=== PATIENT | female | born 1980 | race Caucasian/White ===

== ENCOUNTER 2022-07-10 13:49 | Outpatient (CLI) | payer OTHER, SELFPAY ==
--- NOTE | ~2022-07-10 | MM_ITS ---
EXAMINATION: MM screening yanelis BI w leni HISTORY: Screening TECHNIQUE: Craniocaudal and mediolateral oblique 3-D tomosynthesis images were obtained and synthetic 2-D images were generated. CAD analysis was submitted and interpreted. COMPARISON: No prior mammogram is available for comparison at this institution. BREAST PARENCHYMAL COMPOSITION: The breasts are heterogeneously dense, which may obscure small masses . FINDINGS: There is no evidence of suspicious mass, calcification, or architectural distortion to sugg est malignancy in either breast. There has been no suspicious interval change. IMPRESSION: 1. No mammographic evidence of malignancy. 2. Recommend routine screening mammography in one year. BI-RADS Category 1: Negative Reviewed, dictated and finalized at location A.
== END 2022-07-10 13:50 | disposition home or self-care (01) ==
LOC: ANHIMG 13:54
DX: Z12.31 Encounter for screening mammogram for malignant neoplasm of breast (principal)
CPT/HCPCS: 77063; 77067

== ENCOUNTER 2023-08-20 18:22 | Emergency (ER) | payer OTHER, SELFPAY ==
--- NOTE | ~2023-08-20 | XR_ITS ---
EXAM: XR elbow RT min 3V DATE: 08/20/2023 18:47 HISTORY: FALL, PAIN TO RT ELBOW . COMPARISON: None available. FINDINGS: Normal mineralization. Comminuted impacted fracture of the right radial head, with 2 mm co rtical step-off. No lytic or blastic lesion. Joint spaces are maintained. No erosion or periosteal ch benjamin. Elbow joint effusion. IMPRESSION: Comminuted, impacted right radial head fracture, with 2 mm cortical depression. Moderate right elbow joint effusion. Reviewed, dictated and finalized at location K.
--- NOTE | ~2023-08-20 | XR_ITS ---
EXAM: XR shoulder RT min 2V DATE: 08/20/2023 18:57 HISTORY: FELL, PAIN TO RT SHOULDER . COMPARISON: None available. FINDINGS: Normal mineralization. No fracture or dislocation. No lytic or blastic lesion. Joint space s are maintained. No erosion or periosteal change. Soft tissues within normal limits. IMPRESSION: No acute osseous finding in the right shoulder. Reviewed, dictated and finalized at location K.
--- NOTE | 2023-08-20 18:25 | ED.UPPEXIN ---
HPI - Extremity Injury (Upper) General Chief Complaint: Extremity Injury, Upper Stated Complaint: fall rt arm injury Time Seen by Provider: 08/20/23 18:25 Source: patient Mode of arrival: ambulatory Limitations: no limitations History of Present Illness HPI narrative: Pat is a 43-year-old female patient presenting to the clinic today with complaints of a right arm injury that occurred yesterday. She reports she was standing up on roller skates and fell backwards and hyperextended her right elbow. Is having pain to the mid humerus to the mid forearm. Notable swelling to the posterior elbow when compared to the left elbow Related Data Home Medications Medication Instructions Recorded Confirmed levonorgestrel 21 mcg/24 hours (8 See Rx Instructions .Route .COMPLEX 08/20/23 08/20/23 yrs) 52 mg intrauterine device (Mirena) Allergies Allergy/AdvReac Type Severity Reaction Status Date / Time azithromycin AdvReac Intermediate Abdominal Verified 08/20/23 18:40 Pain Review of Systems Review of Systems: Pertinent positives per HPI. Patient denies any fever, chills, rash, headache, visual changes, dizziness, cough, runny nose, sore throat, shortness of breath, chest pain, palpitations, nausea, vomiting, diarrhea, constipation, abdominal pain, or any urinary issues. PMFSH Comments At the time of my signature, I reviewed and agree with the nursing past medical, surgical, social, and family history. There is no relevant family history pertinent to the patient complaint. Exam Narrative: General: Well-developed, well nourished, in no apparent distress Head: Normocephalic, atraumatic. Cardio: Regular rate and rhythm, s1 and s2 normal, no murmur appreciated. Resp: Clear to auscultation bilaterally, no rhonchi, rales, wheezing or rubs. Musculoskeletal: No deformity, swelling and tenderness to the posterior elbow, pain to the anterior elbow with supination/pronation, tender to palpation over the mid humerus and the mid forearm, limited range of motion due to pain, peripheral pulse strong, no edema, no cyanosis, normal gait and station Course Course Emergency Course: Portions of this record may have been created with voice recognition software. Level of Care: Express Care Visit Vital Signs Vital signs: Vital signs reviewed MDM - Extremity Injury (Upper) MDM Narrative Medical decision making narrative: At the time of visit patient is resting on the exam table. Patient right radial pulses strong and intact and she has good movement of her fingers and wrist, x-ray of the right elbow was performed and shows a closed comminuted right radial head impacted fracture with a 2 mm cortical depression, x-ray of the right shoulder is negative for any fracture or malalignment. Will place the patient in a posterior long-arm OCL and give her arm sling. [place] prescription was sent to the pharmacy. Narcan was also sent to the pharmacy. Supportive measures were discussed with the patient she voiced understanding of discharge instructions. Discussed Ortho follow-up and Dr. Álvarez information was given to the patient. Work note was given for limitations Differential Diagnosis Differential diagnosis: Likely sprain and strain of wrist, dislocation of shoulder, fracture of humerus and other (Radius fracture, ulnar fracture, humerus fracture) Imaging Data Radiologist's impression: ITS Impressions Elbow X-Ray 08/20/23 18:55 IMPRESSION: Comminuted, impacted right radial head fracture, with 2 mm cortical depression. Moderate right elbow joint effusion. Shoulder X-Ray 08/20/23 18:58 IMPRESSION: No acute osseous finding in the right shoulder. Discharge Plan Discharge Clinical Impression: Effusion of elbow joint, right Closed fracture of radial head Qualifiers: Encounter type: initial encounter Fracture alignment: nondisplaced Laterality: right Qualified Code(s): S52.124A - Nondisplaced frac
[2023-08-20 18:32] VITALS: BP 135/70; PULSE 79; RESP 16; TEMP 36.4; O2SAT 100
== END 2023-08-20 19:30 | disposition home or self-care (01) ==
PROVIDERS: Emergency Provider Nurse Practitioner Family
DX: S52.124A Nondisplaced fracture of head of right radius, initial encounter for closed fracture (principal); M25.421 Effusion, right elbow; W18.39XA Other fall on same level, initial encounter; Y93.51 Activity, roller skating (inline) and skateboarding
CPT/HCPCS: 29105; 73030; 73080; 99214; A4565; G0463

== ENCOUNTER 2023-11-10 09:59 | Emergency (ER) | payer OTHER, SELFPAY ==
--- NOTE | ~2023-11-10 | XR_ITS ---
XR chest 2V DATE: 11/10/2023 11:17 INDICATION: Cough, shortness of breath TECHNIQUE: 2 views COMPARISON: None FINDINGS: Normal heart size. No hilar or mediastinal enlargement. No pulmonary infiltrate or consolid ation, pleural effusion or pulmonary vascular congestion or pneumothorax. IMPRESSION: Negative Reviewed, dictated and finalized at location A. [employer]ANCE ENGINEER IMPRESSION: Negative
[2023-11-10 10:39] VITALS: BP 133/80; PULSE 89; RESP 18; TEMP 36.3; O2SAT 100
--- NOTE | 2023-11-10 11:00 | ED.URI ---
HPI - URI/Sore Throat General Chief Complaint: Upper Respiratory Infection Stated Complaint: congestion Time Seen by Provider: 11/10/23 10:45 Source: patient Mode of arrival: ambulatory Limitations: no limitations History of Present Illness HPI Narrative: Pat is a 43-year-old female patient presenting to clinic today with complaints of cough congestion. She reports that she finished up some prednisone and Augmentin for possible pneumonia. Reports that the cough and congestion has been going on for a couple weeks. Also reports some shortness of breath. Denies any fever chills. Cough is productive with green and yellow phlegm. More short of breath upon exertion. MD elicited complaint: sore throat and nasal congestion Related Data Home Medications Medication Instructions Recorded Confirmed levonorgestrel 21 mcg/24 hours (8 See Rx Instructions .Route .COMPLEX 08/20/23 08/20/23 yrs) 52 mg intrauterine device (Mirena) Allergies Allergy/AdvReac Type Severity Reaction Status Date / Time azithromycin AdvReac Intermediate Abdominal Verified 08/20/23 18:40 Pain Review of Systems Review of Systems: Pertinent positives per HPI. Patient denies any fever, chills, rash, headache, visual changes, dizziness, chest pain, palpitations, nausea, vomiting, diarrhea, constipation, abdominal pain, or any urinary issues. PMFSH Comments At the time of my signature, I reviewed and agree with the nursing past medical, surgical, social, and family history. There is no relevant family history pertinent to the patient complaint. Exam Narrative: General: Well-developed, well nourished, in no apparent distress Head: Normocephalic, atraumatic Eyes: Pupils equally round and reactive to light bilaterally, EOM intact, sclera and conjunctive clear, no discharge, lids normal Ears: TMs intact and clear, ear canals clear, no drainage, grossly hearing normal. Nose: Nares patent, clear nasal discharge, no inflammation, no sinus tenderness. Mouth: Oral pharynx without lesions or masses, good dentition, MMM. Neck: Supple, trachea midline, no enlargement of anterior or posterior cervical nodes, no thyroid masses or goiter palpable. Cardio: Regular rate and rhythm, s1 and s2 normal, no murmur appreciated. Resp: Expiratory wheezing and inspiratory rhonchi, no rales or rubs Course Course Emergency Course: Portions of this record may have been created with voice recognition software. Level of Care: Express Care Visit Vital Signs Vital signs: Vital Signs Temperature 36.3 C L 11/10/23 10:39 Pulse Rate 89 11/10/23 10:39 Respiratory Rate 18 11/10/23 10:39 Blood Pressure 133/80 11/10/23 10:39 Pulse Oximetry 100 11/10/23 10:39 Oxygen Delivery Room Air 11/10/23 10:39 Temperature 36.3 C L 11/10/23 10:39 Pulse Rate 89 11/10/23 10:39 Respiratory Rate 18 11/10/23 10:39 Blood Pressure 133/80 11/10/23 10:39 Pulse Oximetry 100 11/10/23 10:39 Oxygen Delivery Room Air 11/10/23 10:39 Vital signs reviewed MDM - URI/Sore Throat MDM Narrative Medical decision making narrative: At the time of visit patient is resting comfortably on the exam table. Patient appears to be nontoxic. Chest x-ray was performed and was negative for any sign of pneumonia. DuoNeb treatment was given in the clinic today and this improved patient's lung sounds. Also reports that she can breathe easier now. I suspect patient has bronchitis. Supportive measures were discussed with the patient and they voiced understanding discharge instructions and agrees to treatment plan. Return precautions reviewed Differential Diagnosis Differential diagnosis: Likely upper respiratory infection, otitis media, sinusitis, viral infection, bronchitis, influenza, pharyngitis and other (COVID) Imaging Data Radiologist's impression: ITS Impressions Chest X-Ray 11/10/23 11:37 IMPRESSION: Negative Discharge Kimberly
[2023-11-10] MEDS: IPRATROPIUM BR 0.02% INH SOLN 0.5 MG/2.5 ML VIAL INHALATION (11:27)
[2023-11-10] MEDS: ALBUTEROL SULFATE NEB 2.5 MG/3 ML INH INHALATION (11:27)
== END 2023-11-10 12:26 | disposition home or self-care (01) ==
PROVIDERS: Emergency Provider Nurse Practitioner Family
DX: J40 Bronchitis, not specified as acute or chronic (principal)
CPT/HCPCS: 71046; 94640; 99213; G0463

== ENCOUNTER 2024-08-28 11:18 | Outpatient (CLI) | payer OTHER, SELFPAY ==
--- NOTE | ~2024-08-28 | MM_ITS ---
EXAMINATION: MM screening yanelis BI w leni HISTORY: Screening TECHNIQUE: Craniocaudal and mediolateral oblique 3-D tomosynthesis images were obtained and synthetic 2-D images were generated. CAD analysis was submitted and interpreted. COMPARISON: Comparison to multiple prior studies sequentially, with oldest reviewed study dated 07/10. BREAST PARENCHYMAL COMPOSITION: Not dense: There are scattered areas of fibroglandular density. FINDINGS: There is no evidence of suspicious mass, calcification, or architectural distortion to sugg est malignancy in either breast. There has been no suspicious interval change. IMPRESSION: 1. No mammographic evidence of malignancy. 2. Recommend routine screening mammography in one year. BI-RADS Category 1: Negative Reviewed, dictated and finalized at location B.
== END 2024-08-28 11:19 | disposition home or self-care (01) ==
DX: Z12.31 Encounter for screening mammogram for malignant neoplasm of breast (principal)
CPT/HCPCS: 77063; 77067